=== PATIENT | male | born 1955 ===

== ENCOUNTER 2025-02-27 00:52 | Inpatient (IN) | payer MEDICARE ==
[~2025-02-27] VITALS: Ht 167.6 cm; Wt 67.3 kg
[2025-02-27] VITALS (49 sets, daily range): BP systolic 69–134; BP diastolic 35–108
[2025-02-27 01:06] LABS: Source, Urine Foley catheter
[2025-02-27 01:07] LABS: Base Excess Venous -6.4 mmol/L; Bicarbonate Venous 19.4 mmol/L (24.0-30.0)
[2025-02-27 01:09] LABS: Bilirubin, Urine Neg (Neg); Blood, Urine 5+ (Neg); Glucose Qualitative, Urine 1+ (Neg); Ketones, Urine 3+ (Neg); Leukocyte Esterase, Urine Neg (Neg); Nitrite, Urine Neg (Neg); Protein, Urine 3+ (Neg); Specific Gravity, Urine 1.025 (1.003-1.022); Urobilinogen, Urine NORM (Normal)
[2025-02-27 01:14] LABS: Hematocrit 39.4 % (37.0-53.0); Hemoglobin 13.9 g/dL (13.5-17.5); Mean Corpuscular HGB 34.1 pg (26.0-34.0); Mean Corpuscular HGB Conc 35.3 g/dL (31.5-36.5); Mean Corpuscular Volume 97 fL (80-100); Mean Platelet Volume 9.9 fL (9.1-12.4); NRBC ABSOLUTE 0.02 K/mm3 (0.00-0.02); NRBC Auto 0.1 /100 WBC (0.0-0.2); Platelet Count 258 K/mm3 (150-400); RDW Coefficient Variation 13.5 % (11.7-14.2); Red Blood Cell Count 4.08 M/mm3 (4.30-5.90); White Blood Cell Count 19.76 K/mm3 (4.00-11.30)
[2025-02-27 01:18] LABS: Appearance, Urine Hazy (Clear); Bacteria Rare /hpf; Color, Urine Yellow (P-Yellow); Red Blood Cells, Urine 25-50 /hpf (0-2); Squamous Epithelial Cells Rare /hpf (Few); White Blood Cells, Urine Not Seen /hpf (0-5)
[2025-02-27 01:19] LABS: Amorphous Mod (0-Heavy); Mucus Light (0-Heavy)
[2025-02-27 01:24] LABS: U Amphetamine Screen Not Detected; U Barbituate Screen Not Detected; U Benzodiazapine Screen Not Detected; U Buprenorphine Screen Not Detected; U Cannabinoids Screen DETECTED; U Cocaine Screen Not Detected; U Methadone Screen Not Detected; U Methamphetamine Screen Not Detected; U Opiates Screen Not Detected; U Oxycodone Screen Not Detected; U Phencyclidine Screen Not Detected
[2025-02-27] MEDS ORDERED: Acetaminophen 650 MG Supp PR ONE (01:25)
[2025-02-27] MEDS ORDERED: propofoL 100 ML IV SCH (01:25)
[2025-02-27 01:31] LABS: Ethanol (Alcohol), Blood, Med <3 mg/dL; Salicylate 2.9 mg/dL (2.8-20.0)
[2025-02-27 01:35] LABS: Alanine Aminotransfer (ALT/SGP 16 U/L (12-78); Albumin, Blood 4.1 g/dL (3.4-5.0); Albumin/Globulin Ratio 1.1 (0.8-1.8); Alk Phos 70 U/L (50-136); Anion Gap 15 mmol/L (3-11); Aspartate Aminotrans (AST/SGOT 30 U/L (12-37); Bilirubin, Total 0.8 mg/dL (0.1-1.0); Blood Urea Nitrogen 22 mg/dL (8-24); Bun/Creatinine Ratio 15.8 (12.0-20.0); CO2, Blood 21 mmol/L (21-32); Calcium, Blood 9.2 mg/dL (8.5-10.1); Chloride, Blood 104 mmol/L (98-108); Creatinine, Blood 1.39 mg/dL (0.60-1.20); Globulin, Blood 3.6 g/dL (2.2-4.0); Glomerular Filtration Rate 54 (60-); Glucose, Blood 206 mg/dL (70-99); Potassium, Blood 3.3 mmol/L (3.5-5.5); Sodium, Blood 137 mmol/L (136-145); Total Protein, Blood 7.7 g/dL (6.4-8.2)
[2025-02-27] MEDS ORDERED: Piperacillin/Tazobactam Sod 4.5 GM in NS 100 ML IV ONE (01:35)
[2025-02-27 01:37] LABS: Acetaminophen, Random <2.0 ug/mL (10.0-30.0)
[2025-02-27 01:38] LABS: BAND PERCENT MAN 21 % (0-8); BASOPHILS PERCENT MAN 0 % (0-2); EOSINOPHILS PERCENT MAN 0 % (0-6); International Normalized Ratio 1.05; LYMPHOCYTES ABSOLUTE MAN 0.79 K/mm3 (0.84-5.20); LYMPHOCYTES PERCENT MAN 4 % (21-46); MONOCYTES ABSOLUTE MAN 1.77 K/mm3 (0.16-1.47); MONOCYTES PERCENT MAN 9 % (4-13); NEUTROPHILS ABSOLUTE MAN 17.19 K/mm3 (1.96-9.15); Prothrombin Time Results 11.2 Sec (9.7-11.5); SEG NEUTROPHILS PERCENT MAN 66 % (41-73); TOTAL CELLS COUNTED 100
[2025-02-27 01:47] LABS: Influenza A, PCR NEGATIVE (NEGATIVE); Influenza B, PCR NEGATIVE (NEGATIVE); Resp Syncytial Virus, PCR NEGATIVE (NEGATIVE); SARS-Cov-2 (COVID-19) PCR, MMC NEGATIVE (NEGATIVE)
[2025-02-27] MEDS ORDERED: Midazolam HCL 50 MG in NS 40 ML IV PRN (02:15)
[2025-02-27] MEDS ORDERED: NS 1,000 ML IV ONE (02:20)
[2025-02-27] MEDS ORDERED: Vancomycin HCL 1,500 MG in NS 250 ML IV ONE (02:25)
[2025-02-27] MEDS ORDERED: Midazolam HCL 1 MG/ML 5MLVIAL ONE (02:27)
[2025-02-27] MEDS ORDERED: NS 1,000 ML IV SCH (02:50)
[2025-02-27] MEDS ORDERED: Midazolam HCL 1 MG/ML 5MLVIAL IV ONE (02:50)
[2025-02-27] MEDS ORDERED: FentaNYL Citrate 50 MCG/ML 2 ML Injection ONE ×2 (04:49→16:35)
[2025-02-27] MEDS ORDERED: Ampicillin Sod 2,000 MG in NS 100 ML IV ONE (05:10)
[2025-02-27] MEDS ORDERED: Lactated Ringer's 1,000 ML IV ONE ×3 (05:15→14:50)
[2025-02-27] MEDS ORDERED: CefTRIAXone Sodium 2,000 MG in NS 100 ML IV SCH ×2 (06:36→07:01)
[2025-02-27] MEDS ORDERED: Ampicillin Sod 2,000 MG in NS 100 ML IV SCH (06:37)
[2025-02-27] MEDS ORDERED: Insulin Regular 100 UNIT/ML 10ML Vial SC SCH (06:39)
[2025-02-27] MEDS ORDERED: propofoL 100 ML IV PRN (06:40)
[2025-02-27] MEDS ORDERED: Lactated Ringer's 1,000 ML IV SCH (06:45)
[2025-02-27] MEDS ORDERED: FLU VACC TS2024-25(6MOS UP)/PF 45 MCG/0.5 ML SYRINGE IM ONE (06:45)
[2025-02-27] MEDS ORDERED: NS 1,000 ML BAG IR PRN (07:50)
[2025-02-27] MEDS ORDERED: Cetylpyridinium Chloride 1 EA MISC MT SCH (08:00)
[2025-02-27] MEDS ORDERED: NS 250 ML IV PRN (08:15)
[2025-02-27] MEDS ORDERED: Docusate Sodium 100 MG Cap PO SCH (09:00)
[2025-02-27] MEDS ORDERED: Lactobacil 2-S.Thermo-Bifido 1 1 Cap PO SCH (09:00)
--- NOTE | 2025-02-27 09:35 | NUR ---
AM UPDATE VERSED PAUSED FOR SEDATION VACATION. PT MOVES ALL EXTREMITIES BUT DOES NOT OPEN EYES OR FOLLOW COMMANDS. ETT INTACT AND SECURE. OGT CLAMP. MARTIN IN PLACE, DRAINING TEA COLORED URINE TO GRAVITY. IMAGING REVIEWED AND DISCUSSED WITH DR. ACUNA AT BEDSIDE. TROPONIN CRITICAL VALUE OF 1582 REPORTED AT BEDSIDE. SPOKE WITH PHARMACY, VANCOMYCIN STARTED IN ED AT 0233 BUT STOPPED AT SOME POINT. RESTARTED AT 0830 AND AMENDED EMAR TO REFLECT. BPS SOFT WITH MAP >65, NSR 60S-70S. PINPOINT PUPILS. PIV X2. LR INFUSING. AMPICILLIN, ROCEPHIN, VANC ADMINISTERED. AFEBRILE. PLAN FOR POSSIBLE LUMBAR PUNCTURE TODAY BY DR. ACUNA. NEURO AT [facility] HAS BEEN CONSULTED AND INVOLVED WITH DECISIONS IN CARE. SAFETY, COMFORT, HYGIENE ADDRESSED.
--- NOTE | 2025-02-27 09:41 | NUR ---
ASSUMPTION OF CARE THIS NURSE ASSSUMED CARE AT 0940 AND THIS RN AGREES WITH PREVIOUS NURSE ASSESSMENT.
[2025-02-27] MEDS ORDERED: LORazepam 2 MG/ML 1ML Injection IV PRN (10:40)
[2025-02-27] MEDS ORDERED: Hydrogen Peroxide 1.5 % Solution MT SCH (12:00)
[2025-02-27 13:57] LABS: Acinetobacter baumannii DNA Not Detected copy/mL (NOT DETECT); Enterobacter cloacae DNA Not Detected copy/mL (NOT DETECT); Escherichia coli DNA Not Detected copy/mL (NOT DETECT); Haemophilus influenzae DNA Not Detected copy/mL (NOT DETECT); Klebsiella aerogenes DNA Not Detected copy/mL (NOT DETECT); Klebsiella oxytoca DNA Not Detected copy/mL (NOT DETECT); Klebsiella pneumoniae DNA Not Detected copy/mL (NOT DETECT); Moraxella catarrhalis DNA Not Detected copy/mL (NOT DETECT); Proteus sp DNA Not Detected copy/mL (NOT DETECT); Pseudomonas aeruginosa DNA Not Detected copy/mL (NOT DETECT); Serratia marcescens DNA Not Detected copy/mL (NOT DETECT); Staphylococcus aureus DNA Not Detected copy/mL (NOT DETECT); Streptococcus agalactiae DNA Not Detected copy/mL (NOT DETECT); Streptococcus pneumoniae DNA Not Detected copy/mL (NOT DETECT); Streptococcus pyogenes DNA Not Detected copy/mL (NOT DETECT)
[2025-02-27 13:58] LABS: Adenovirus DNA Not Detected (NOT DETECT); Chlamydia pneumonia Not Detected (NOT DETECT); Human Coronavirus RNA Not Detected (NOT DETECT); Human Metapneumovirus RNA Not Detected (NOT DETECT); Influenza virus A RNA Not Detected (NOT DETECT); Influenza virus B RNA Not Detected (NOT DETECT); Legionella pneumophila Not Detected (NOT DETECT); Mycoplasma pneumoniae Not Detected (NOT DETECT); Parainfluenza virus RNA Not Detected (NOT DETECT); Respiratory syncytial Vir RNA Not Detected (NOT DETECT); Rhinovirus+Enterovirus RNA Not Detected (NOT DETECT)
[2025-02-27 14:40] LABS: Glucose, CSF 91 mg/dL (40-70)
[2025-02-27 15:18] LABS: RBC Count, CSF 928 /mm3 (0-0); WBC Count, CSF 63 /mm3 (0-5)
[2025-02-27 15:19] LABS: Appearance, CSF Hazy (Clear)
[2025-02-27 15:25] LABS: Color, CSF Pink (No Color)
[2025-02-27 15:44] LABS: Appearance, CSF Hazy (Clear); Color, CSF Pink (No Color); Cryptococcus Neoformans/Gattii Not Detected (NOT DETECT); Enterovirus Not Detected (NOT DETECT); Escherichia Coli K1 Not Detected (NOT DETECT); Haemophilus Influenza Not Detected (NOT DETECT); Herpes Simplex Virus 1 Not Detected (NOT DETECT); Herpes Simplex Virus 2 Not Detected (NOT DETECT); Human Herpesvirus 6 Not Detected (NOT DETECT); Human Parechovirus Not Detected (NOT DETECT); Listeria Monocytogenes Not Detected (NOT DETECT); Neisseria Meningitidis Not Detected (NOT DETECT); RBC Count, CSF 940 /mm3 (0-0); Streptococcus Agalactiae Not Detected (NOT DETECT); Streptococcus Pneumoniae Not Detected (NOT DETECT); Varicella Zoster Virus Not Detected (NOT DETECT); WBC Count, CSF 78 /mm3 (0-5)
[2025-02-27 17:14] LABS: Lymphocytes, CSF 3 % (40-80); Monocytes, CSF 7 % (15-45); Neutrophils, CSF 90 % (0-6)
[2025-02-27 17:15] LABS: Lymphocytes, CSF 3 % (40-80); Monocytes, CSF 12 % (15-45); Neutrophils, CSF 85 % (0-6)
[2025-02-27 17:26] LABS: Base Excess Venous -4.1 mmol/L; Bicarbonate Venous 21.4 mmol/L (24.0-30.0); PCO2 Venous 34.7 mmHg (38-42); pH Blood Venous 7.39 (7.34-7.37)
[2025-02-27] MEDS ORDERED: FentaNYL Citrate 50 MCG/ML 2 ML Injection IV PRN (17:50)
[2025-02-27 17:54] LABS: BASOPHILS ABSOLUTE AUTO 0.06 K/mm3 (0.00-0.23); BASOPHILS PERCENT AUTO 1 % (0-2); EOSINOPHILS ABSOLUTE AUTO 0.03 K/mm3 (0.00-0.68); EOSINOPHILS PERCENT AUTO 0 % (0-6); Hematocrit 29.6 % (37.0-53.0); Hemoglobin 10.3 g/dL (13.5-17.5); IMMATURE GRAN ABSOLUTE AUTO 0.02 K/mm3 (0.00-0.10); IMMATURE GRAN PERCENT AUTO 0 % (0-1); LYMPHOCYTES ABSOLUTE AUTO 1.89 K/mm3 (0.84-5.20); LYMPHOCYTES PERCENT AUTO 18 % (21-46); MONOCYTES ABSOLUTE AUTO 0.62 K/mm3 (0.16-1.47); MONOCYTES PERCENT AUTO 6 % (4-13); Mean Corpuscular HGB 33.4 pg (26.0-34.0); Mean Corpuscular HGB Conc 34.8 g/dL (31.5-36.5); Mean Corpuscular Volume 96 fL (80-100); Mean Platelet Volume 9.9 fL (9.1-12.4); NEUTROPHILS ABSOLUTE AUTO 7.89 K/mm3 (1.96-9.15); NEUTROPHILS PERCENT AUTO 75 % (41-73); Platelet Count 145 K/mm3 (150-400); RDW Coefficient Variation 13.8 % (11.7-14.2); Red Blood Cell Count 3.08 M/mm3 (4.30-5.90); White Blood Cell Count 10.51 K/mm3 (4.00-11.30)
--- NOTE | 2025-02-27 18:09 | NUR ---
SHIFT SUMMARY PT REMAINS INTUBATED AND SEDATED. FAMILY HAS BEEN UPDATE PER PHONE. PT CONTINUES TO BE ABLE TO MOVE ALL EXTREMETIES BUT DOES NOT FOLLOW COMMANDS. PT HR HAS SLOWLY BEEN TRENDING DOWN FROM THE 70'S TO 50'S. 12 LEAD EKG OBTAINED, SEE CHART, MD AWARE. PT HAS A PICC IN THE LEFT ARM WITH CONSENT IN THE CHART D/T HYPOTENSION. BRONCHOSCOPY AT BEDSIDE PERFORMED TO FIND A TOOTH THAT THE STAFF HAD SUSPISION WAS IN THE MOUTH/THROAT, NO TOOTH WAS FOUND AND NONE SEEN ON IMAGING. PT SKIN TEAR ON LEFT HAND WAS PICTURED AND DOCUMENTED, SEE CHART. WOUNDS HAVE BEEN NOTIFIED TO DR ABDUL OF BOTH LEFT AND RIGHT HAND SKIN TEARS. WILL CONTINUE WITH THE PLAN OF CARE.
[2025-02-27 21:24] LABS: Magnesium, Blood 1.7 mg/dL (1.6-2.4)
[2025-02-27 21:27] LABS: Albumin, Blood 2.5 g/dL (3.4-5.0); Bilirubin, Total 0.7 mg/dL (0.1-1.0); Bun/Creatinine Ratio 18.3 (12.0-20.0); Calcium, Blood 7.3 mg/dL (8.5-10.1); Creatinine, Blood 0.76 mg/dL (0.60-1.20); Globulin, Blood 2.6 g/dL (2.2-4.0); Phosphorus, Blood 2.2 mg/dL (2.5-4.9); Potassium, Blood 3.1 mmol/L (3.5-5.5)
[2025-02-27 21:28] LABS: Total Protein, Blood 5.1 g/dL (6.4-8.2)
[2025-02-27] MEDS ORDERED: Potassium Chl 20MEQ/Water100ML 100 ML IV ONE (22:10)
[2025-02-27] MEDS ORDERED: Magnesium Sulf 2 GM/Water 50ML 50 ML IV ONE (22:15)
[2025-02-27] MEDS ORDERED: Potassium Phosphate Dibasic 30 MM in Dextrose 5% 500 ML IV ONE (22:45)
[2025-02-28] VITALS (73 sets, daily range): BP systolic 88–145; BP diastolic 49–126
[2025-02-28] MEDS ORDERED: Hydrogen Peroxide 1.5 % Solution MT SCH
[2025-02-28 04:21] LABS: BASOPHILS ABSOLUTE AUTO 0.06 K/mm3 (0.00-0.23); BASOPHILS PERCENT AUTO 1 % (0-2); EOSINOPHILS ABSOLUTE AUTO 0.05 K/mm3 (0.00-0.68); EOSINOPHILS PERCENT AUTO 1 % (0-6); Hematocrit 23.8 % (37.0-53.0); Hemoglobin 8.6 g/dL (13.5-17.5); IMMATURE GRAN ABSOLUTE AUTO 0.04 K/mm3 (0.00-0.10); IMMATURE GRAN PERCENT AUTO 1 % (0-1); LYMPHOCYTES ABSOLUTE AUTO 1.44 K/mm3 (0.84-5.20); LYMPHOCYTES PERCENT AUTO 19 % (21-46); MONOCYTES ABSOLUTE AUTO 0.42 K/mm3 (0.16-1.47); MONOCYTES PERCENT AUTO 6 % (4-13); Mean Corpuscular HGB 34.7 pg (26.0-34.0); Mean Corpuscular HGB Conc 36.1 g/dL (31.5-36.5); Mean Corpuscular Volume 96 fL (80-100); Mean Platelet Volume 9.7 fL (9.1-12.4); NEUTROPHILS ABSOLUTE AUTO 5.45 K/mm3 (1.96-9.15); NEUTROPHILS PERCENT AUTO 73 % (41-73); Platelet Count 109 K/mm3 (150-400); RDW Coefficient Variation 13.6 % (11.7-14.2); RDW Standard Deviation 48.1 fL (35.1-46.3); Red Blood Cell Count 2.48 M/mm3 (4.30-5.90); White Blood Cell Count 7.46 K/mm3 (4.00-11.30)
[2025-02-28 04:50] LABS: Magnesium, Blood 1.7 mg/dL (1.6-2.4)
[2025-02-28 05:23] LABS: Albumin, Blood 2.1 g/dL (3.4-5.0); Albumin/Globulin Ratio 0.8 (0.8-1.8); Bilirubin, Total 0.5 mg/dL (0.1-1.0); Bun/Creatinine Ratio 16.7 (12.0-20.0); Calcium, Blood 6.2 mg/dL (8.5-10.1); Creatinine, Blood 0.6 mg/dL (0.60-1.20); Globulin, Blood 2.8 g/dL (2.2-4.0); Potassium, Blood 2.9 mmol/L (3.5-5.5); Total Protein, Blood 4.9 g/dL (6.4-8.2)
[2025-02-28] MEDS ORDERED: D5W-1/2NS 1,000 ML IV SCH (05:40)
[2025-02-28 05:44] LABS: PCO2 Arterial 26.9 mmHg (35-45); PO2 Arterial 137 mmHg (80-100); pH Blood Arterial 7.46 (7.35-7.45)
--- NOTE | 2025-02-28 06:25 | NUR ---
SHIFT SUMMARY: THIS PT STILL REMAINS INTUBATED AND SEDATED. DAUGHTER AND CALLED THIS AM AND WERE UPDATED. PT IS AGITATED WHEN AWAKE AND NOT FOLLOWING MY COMMANDS. BED BATH GIVEN OVERNIGHT WITH COMPLETE LINEN CHANGE. HEART RATE CONTINUES TO BE BRADYCARDIC IN THE 50s-60s. MAP HAS BEEN GREATER THAN 65. HE ALSO REMAINS AFEBRILE. CURRENTLY ON PROPOFOL GTT AND MAINTENANCE FLUID. ELECTROLYTE IMBALANCE TALKED ABOUT WITH PHYSICIAN THIS AM. PLAN IS TO OBTAIN RENAL FUNCTION LAB TEST BEFORE REPLACING.
[2025-02-28] MEDS ORDERED: Pantoprazole Sodium 40 MG Injection IV SCH (06:38)
[2025-02-28] MEDS ORDERED: Cetylpyridinium Chloride 1 EA MISC MT SCH (08:00)
[2025-02-28] MEDS ORDERED: Vancomycin HCL 1,500 MG in NS 250 ML IV SCH ×2 (08:00→20:00)
[2025-02-28 08:56] LABS: Bun/Creatinine Ratio 14.3 (12.0-20.0); Calcium, Blood 7.3 mg/dL (8.5-10.1); Creatinine, Blood 0.7 mg/dL (0.60-1.20); Magnesium, Blood 1.9 mg/dL (1.6-2.4); Phosphorus, Blood 3.2 mg/dL (2.5-4.9); Potassium, Blood 3.5 mmol/L (3.5-5.5)
[2025-02-28] MEDS ORDERED: Docusate Sodium Liquid 100 MG UDC PO SCH (09:00)
[2025-02-28] MEDS ORDERED: Bisacodyl 10 MG Supp PR PRN (12:15)
[2025-02-28] MEDS ORDERED: Magnesium Hydroxide Conc 10 ML UDC PT PRN (12:15)
--- NOTE | 2025-02-28 13:11 | NUR ---
MID SHIFT SUMMARY PT AGITATED +4 TO -4 RASS. OPENS EYES AND COMBATIVE TO STIMULATION BUT DOES NOT FOLLOW COMMANDS. MOVES ALL EXTREMITIES. UNABLE TO TOLERATE SAT. NO SBT PERFORMED D/T SAFETY. ELECTROLYTES REPLACED PM. REPEAT LABS THIS MORNING AND THIS AFTERNOON. BEDSIDE ECHO COMPLETED. NUTRITION CONSULT PLACED. TF VHP INITIATED. DR. ACUNA SPOKE WITH PT'S DAUGHTER VIA TELEPHONE CALL. PICC, PIVX1, SCDS, MARTIN TO GRAVITY. AFEBRILE. SPOKE WITH AMRIK IN LAB TO CLARIFY RECEIPT OF PENDING SPUTUM CULTURE. PER LAB, SPECIMEN WAS USED FOR SOME LAB RESULTS BUT THE CULTURE WAS NOT RAN. LAB TO COMPLETE WORKUP USING SPECIMEN ALREADY IN LAB.
[2025-02-28] MEDS ORDERED: Potassium Chloride 40 MEQ in NS 250 ML IV ONE (18:00)
--- NOTE | 2025-02-28 18:20 | NUR ---
END OF SHIFT SUMMARY NO ACUTE CHANGES. FAMILY UPDATED. VHP TF INITIATED VIA OGT - 25ML/HR FWF 30ML Q4H - GOAL TF RATE OF 50 ML/HR. PT REMAINS ENCEPHALOPATHIC, DOES NOT FOLLOW COMMANDS BUT MOVES ALL EXTREMITIES. COMBATIVE WITH PT CARE. BUE RESTRAINTS APPLIED APPROPRIATELY AND SAFETY MEASURES FOLLOWED. 40 MEQ POTASSIUM CHLORIDE REPLACED AT 1800. REPEATING IONIZED CALCIUM.
[2025-03-01] VITALS (56 sets, daily range): BP systolic 83–152; BP diastolic 43–130
[2025-03-01 05:31] LABS: BASOPHILS ABSOLUTE AUTO 0.05 K/mm3 (0.00-0.23); BASOPHILS PERCENT AUTO 1 % (0-2); EOSINOPHILS ABSOLUTE AUTO 0.11 K/mm3 (0.00-0.68); EOSINOPHILS PERCENT AUTO 2 % (0-6); Hematocrit 27.8 % (37.0-53.0); Hemoglobin 9.8 g/dL (13.5-17.5); IMMATURE GRAN ABSOLUTE AUTO 0.03 K/mm3 (0.00-0.10); IMMATURE GRAN PERCENT AUTO 0 % (0-1); LYMPHOCYTES ABSOLUTE AUTO 1.32 K/mm3 (0.84-5.20); LYMPHOCYTES PERCENT AUTO 19 % (21-46); MONOCYTES ABSOLUTE AUTO 0.39 K/mm3 (0.16-1.47); MONOCYTES PERCENT AUTO 6 % (4-13); Mean Corpuscular HGB 33.8 pg (26.0-34.0); Mean Corpuscular HGB Conc 35.3 g/dL (31.5-36.5); Mean Corpuscular Volume 96 fL (80-100); Mean Platelet Volume 9.7 fL (9.1-12.4); NEUTROPHILS ABSOLUTE AUTO 5.16 K/mm3 (1.96-9.15); NEUTROPHILS PERCENT AUTO 73 % (41-73); Platelet Count 123 K/mm3 (150-400); RDW Coefficient Variation 13.5 % (11.7-14.2); RDW Standard Deviation 47.8 fL (35.1-46.3); White Blood Cell Count 7.06 K/mm3 (4.00-11.30)
[2025-03-01 06:27] LABS: Magnesium, Blood 1.7 mg/dL (1.6-2.4)
--- NOTE | 2025-03-01 06:41 | NUR ---
SHIFT SUMMARY: PT REMAINS INTUBATED/SEDATED. THIS SHIFT PT DID FOLLOW COMMANDS BRIEFLY, ABLE TO SQUEEZE THIS RNS HAND, NOD, AND WIGGLE TOES. PT VENT SETTINGS REMAIN AC/VC 15/450/5/30%. SATS 100%. HR REMAINS 50-70S W/INTERMITTENT SPIKES INTO THE 90S WITH CARE. SBP 90S-130S. PT GIVEN MULTIPLE DOSES OF ATIVAN AND FENTANYL PRIOR TO CARE DUE TO PT NOT TOLERATING MUCH MOVEMENT WITHOUT FIGHTING VENT. SEE EMAR. PT HAS OG TUBE IN PLACE, INFUSING VITAL HP AT 45ML/HR. GOAL 50ML/HR. TEMP MARTIN REMAINS IN PLACE, PATENT, DRAINING CLEAR/YELLOW URINE. PICC LINE REMAINS IN KAY. PERIPHERAL 20G IN RAC. PROPOFOL INFUSING AT 20MCG/KG/MIN, NS INFUSING AT 10ML/HR.
[2025-03-01 06:55] LABS: Bun/Creatinine Ratio 9.9 (12.0-20.0); Calcium, Blood 7.6 mg/dL (8.5-10.1); Creatinine, Blood 0.61 mg/dL (0.60-1.20); Phosphorus, Blood 2.1 mg/dL (2.5-4.9); Potassium, Blood 3.1 mmol/L (3.5-5.5)
[2025-03-01 08:25] LABS: Vancomycin, Trough 21.1 ug/mL (5.0-10.0)
--- NOTE | 2025-03-01 09:29 | NUR ---
AM NOTE... ASSUMED CARE OF PATIENT AT 0700. PATIENT VENTILATED AND SEDATED WITH VENT SETTINGS AC/VC+ 16/450/5 30%. PROPOFOL RUNNING AT 25 MCG/KG/MIN AND INCREASED TO 30 MCG/KG/MIN D/T PATIENT FIGHTING THE VENT. ET TUBE 26 AT THE TOP TEETH. OG TUBE AT 45 RUNNING VITAL HIGH PROTEIN AT 45ML/HR. GOAL 50ML/HR. L/S CLEAR WITH SATS >98%. TEMP MARTIN PATIENT AND DRAINING YELLOW URINE TO GRAVITY.
[2025-03-01] MEDS ORDERED: Vancomycin HCL 1,250 MG in NS 250 ML IV SCH (10:00)
[2025-03-01] MEDS ORDERED: Potassium Phosphate Dibasic 30 MM in Dextrose 5% 500 ML IV ONE (10:20)
[2025-03-01] MEDS ORDERED: dexmedeTOMIDine 100 ML IV SCH (10:25)
[2025-03-01] MEDS ORDERED: Calcium Gluconate 10% 2,000 MG in NS 50 ML IV ONE (11:10)
[2025-03-01] MEDS ORDERED: CALCIUM GLUC IN NACL, ISO-OSM 100 ML IV ONE (11:15)
[2025-03-01] MEDS ORDERED: NS 1,000 ML IV SCH (13:40)
--- NOTE | 2025-03-01 13:41 | NUR ---
LIBERATION NOTE... PATIENT WAS LIBERATED FROM THE VENTILATOR AT 1300 TO 4L NC WITH O2 SATS >95%. OTHER VS STABLE. PATIENT A&OX4. FAMILY UPDATED. AT 1340 NC WAS TITRATED DOWN TO 2L WITH O2 SATS >95%.
[2025-03-01] MEDS ORDERED: Insulin Regular 100 UNIT/ML 10ML Vial SC SCH (16:30)
[2025-03-01] MEDS ORDERED: Ondansetron HCl 2 MG / ML 2ML Vial ONE (16:42)
[2025-03-01] MEDS ORDERED: Ondansetron HCl 2 MG / ML 2ML Vial IV PRN (16:45)
--- NOTE | 2025-03-01 17:58 | NUR ---
SHIFT SUMMARY... PATIENT LIBERATED THIS SHIFT AT 1300 AND IS NOW ON ROOM AIR WITH SATS >95%. PATIENT UP TO CHAIR WITH MINIMAL ASSISTANCE. PATIENT ABLE TO SWALLOW THIN LIQUIDS AND SOFT FOODS. TEMP MARTIN PATENT AND DRAINING YELLOW URINE TO GRAVITY. PATIENT HAD SMALL BOUT OF N/V AND WAS MEDICATED PER EMAR. PICC LINE PULLED OUT TO 3CM D/T PLACEMENT. PATIENT DID NOT HAVE BM THIS SHIFT. AT BEDSIDE HAS BEEN UPDATED. PATIENT IS NOW PCU STATUS.
--- NOTE | 2025-03-01 18:08 | NUR ---
STUDENT GRAPHIC ARTS INSTRUCTOR.... THIS RN HAS WITNESSED AND AGREES WITH ALL OF STUDENT RN JT'S CHARTING AND DOCUMENTATION.
[2025-03-02] VITALS (24 sets, daily range): BP systolic 112–176; BP diastolic 63–95
[2025-03-02 04:02] LABS: BASOPHILS ABSOLUTE AUTO 0.04 K/mm3 (0.00-0.23); BASOPHILS PERCENT AUTO 1 % (0-2); EOSINOPHILS ABSOLUTE AUTO 0.03 K/mm3 (0.00-0.68); EOSINOPHILS PERCENT AUTO 0 % (0-6); Hematocrit 32.6 % (37.0-53.0); Hemoglobin 11.8 g/dL (13.5-17.5); IMMATURE GRAN ABSOLUTE AUTO 0.03 K/mm3 (0.00-0.10); IMMATURE GRAN PERCENT AUTO 0 % (0-1); LYMPHOCYTES ABSOLUTE AUTO 1.02 K/mm3 (0.84-5.20); LYMPHOCYTES PERCENT AUTO 15 % (21-46); MONOCYTES ABSOLUTE AUTO 0.47 K/mm3 (0.16-1.47); MONOCYTES PERCENT AUTO 7 % (4-13); Mean Corpuscular HGB 34.5 pg (26.0-34.0); Mean Corpuscular HGB Conc 36.2 g/dL (31.5-36.5); Mean Corpuscular Volume 95 fL (80-100); Mean Platelet Volume 9.8 fL (9.1-12.4); NEUTROPHILS ABSOLUTE AUTO 5.43 K/mm3 (1.96-9.15); NEUTROPHILS PERCENT AUTO 77 % (41-73); Platelet Count 142 K/mm3 (150-400); RDW Coefficient Variation 13.2 % (11.7-14.2); Red Blood Cell Count 3.42 M/mm3 (4.30-5.90); White Blood Cell Count 7.02 K/mm3 (4.00-11.30)
[2025-03-02 04:49] LABS: Ferritin, Serum 248 ng/mL (26-388); Iron Serum 54 ug/dL (65-175); Magnesium, Blood 1.6 mg/dL (1.6-2.4); Percent Saturation 43.5 % (20.0-50.0); Total Iron Binding Capacity 124 ug/dL (250-450)
--- NOTE | 2025-03-02 04:55 | NUR ---
SHIFT SUMMARY PT HAD UNEVENTFUL NIGHT. PT RESPONDS TO VERBAL STIMULI. FOLLOWS COMMANDS, HOLLERS OUT FOR HELP, DOES NOT USE CALL LIGHT. ON ROOM AIR ALL SHIFT, SATS > 94%. ON EQUIPMENT STERILIZER, HR 70-80'S, BP STABLE, MAPS > 65. PT HAD TWO INCONTINENT LOOSE BM THIS SHIFT. MARTIN DRAINING LOTS OF CLEAR YELLOW URINE TO GRAVITY. PT TOLERATING SMALL PORTIONS OF PO INTAKE, PILLS IN APPLESAUCE. NO N/V THIS SHIFT. PT SLEPT IN CHAIR T/O NIGHT PER HIS REQUEST. REFUSED TO BE TURNED. CALL LIGHT IN REACH.
[2025-03-02 05:49] LABS: Albumin, Blood 2.7 g/dL (3.4-5.0); Anion Gap 8 mmol/L (3-11); Blood Urea Nitrogen 3 mg/dL (8-24); CO2, Blood 28 mmol/L (21-32); Calcium, Blood 7.9 mg/dL (8.5-10.1); Chloride, Blood 107 mmol/L (98-108); Glomerular Filtration Rate 103 (60-); Glucose, Blood 161 mg/dL (70-99); Phosphorus, Blood 3.2 mg/dL (2.5-4.9); Potassium, Blood 3.2 mmol/L (3.5-5.5); Sodium, Blood 140 mmol/L (136-145)
[2025-03-02] MEDS ORDERED: CALCIUM GLUC IN NACL, ISO-OSM 100 ML IV ONE (11:15)
[2025-03-02] MEDS ORDERED: Potassium Chloride 40 MEQ in NS 250 ML IV ONE (11:15)
[2025-03-02] MEDS ORDERED: Enoxaparin 40 MG/0.4 ML SYR SC SCH (12:00)
--- NOTE | 2025-03-02 17:52 | NUR ---
SHIFT SUMMARY PATIENT ALERT AND ORIENTED TO PERSON, PLACE, SITUATION BUT NOT TIME. HE KNOWS HE IS AT THE HOSPITAL BUT CANNOT RECALL THE TOWN. HE CALLS OUT VERBALLY FOR HELP BUT DOES NOT ATTEMPT TO GET UP ON HIS OWN. HE IS ABLE TO MAKE HIS NEEDS KNOWN. LUNGS ARE CLEAR TO AUSCULTATION. VSS SBP 110-150S. HR 90-110S. ABDOMEN IS SOFT/NON TENDER, HYPERACTIVE BOWEL TONES. HAD BM X3 TODAY, DIARRHEA BUT THEN RESOLVED (RECEIEVED DOCUSATE YESTERDAY, HELD TODAY). MARTIN IN PLACE, UOP IS IMPRESSIVE. PO INTAKE IMPROVED FOOD AND FLUIDS. SKIPPED LUNCH BUT ATE FULL BREAKFAST AND DINNER. INTO VISIT UPDATES AND EDUCATION PROVIDED, EST 25MIN EDUCATION/ REVIEWING HOSPIATL COARSE. SKIN: ECCYMOSIS AND SKIN TEARS BUE. OTHERWISE SKIN LOOKS GOOD INTACT WITH MINIMAL BRUISING.
[2025-03-03] VITALS: BP 116/57
--- NOTE | 2025-03-03 01:20 | NUR ---
NURSING NOTE: THIS RN TOOK PT UP TO MEDICAL FLOOR FROM ICU AT AROUND 0100. THIS RN ATTEMPTED TO CALL FOR NOTIFICATION BUT WAS UNSUCCESSFUL. UNABLE TO LEAVE MESSAGE WELL.
--- NOTE | 2025-03-03 01:32 | NUR ---
ICU ROOM 12 TRANSFER. REPORT TAKEN FROM CARIDAD HANSON. PATIENT ALERT ORIENTED AND ONE ASSIST FROM [place] TO BED. ON ROOM AIR. DENIES CHEST PAIN, SOB, AND N/V. PICC DENIA ARM INTACT. NS INFUSING @ 75 mL/HR. PERSONAL BELONGINGS WITH PATIENT. FRANKI.
--- NOTE | 2025-03-03 04:06 | NUR ---
SHIFT SUMMARY PATIENT HAD NO ACUTE CHANGES. SLEPT AFTER ICU TRANSFER. DENIES CHEST PAIN, SOB, AND N/V. VSS/AFEBRILE. TELE MONITOR NSR 96. PULLED PIV. PICC DENIA ARM INTACT. COOPERATIVE WITH CARE. CALL LIGHT IN REACH. BED IN LOWEST POSITION AND ALARM ACTIVATED. WILL CONTINUE TO MONITOR UNTIL DAY SHIFT NURSE ASSUMES CARE.
[2025-03-03 04:35] VITALS: BP 141/72
[2025-03-03 05:59] LABS: BASOPHILS ABSOLUTE AUTO 0.06 K/mm3 (0.00-0.23); BASOPHILS PERCENT AUTO 1 % (0-2); EOSINOPHILS ABSOLUTE AUTO 0.07 K/mm3 (0.00-0.68); EOSINOPHILS PERCENT AUTO 1 % (0-6); Hematocrit 32.5 % (37.0-53.0); Hemoglobin 11.4 g/dL (13.5-17.5); IMMATURE GRAN ABSOLUTE AUTO 0.03 K/mm3 (0.00-0.10); IMMATURE GRAN PERCENT AUTO 0 % (0-1); LYMPHOCYTES ABSOLUTE AUTO 1.26 K/mm3 (0.84-5.20); LYMPHOCYTES PERCENT AUTO 16 % (21-46); MONOCYTES ABSOLUTE AUTO 0.58 K/mm3 (0.16-1.47); MONOCYTES PERCENT AUTO 7 % (4-13); Mean Corpuscular HGB 33.4 pg (26.0-34.0); Mean Corpuscular HGB Conc 35.1 g/dL (31.5-36.5); Mean Corpuscular Volume 95 fL (80-100); Mean Platelet Volume 9.4 fL (9.1-12.4); NEUTROPHILS ABSOLUTE AUTO 6.09 K/mm3 (1.96-9.15); NEUTROPHILS PERCENT AUTO 75 % (41-73); Platelet Count 162 K/mm3 (150-400); RDW Coefficient Variation 13.1 % (11.7-14.2); RDW Standard Deviation 45.6 fL (35.1-46.3); Red Blood Cell Count 3.41 M/mm3 (4.30-5.90); White Blood Cell Count 8.09 K/mm3 (4.00-11.30)
[2025-03-03 06:21] LABS: Albumin, Blood 2.7 g/dL (3.4-5.0); Albumin/Globulin Ratio 0.8 (0.8-1.8); Bilirubin, Total 0.7 mg/dL (0.1-1.0); Bun/Creatinine Ratio 7.8 (12.0-20.0); Calcium, Blood 8.5 mg/dL (8.5-10.1); Creatinine, Blood 0.64 mg/dL (0.60-1.20); Globulin, Blood 3.5 g/dL (2.2-4.0); Potassium, Blood 3.2 mmol/L (3.5-5.5); Total Protein, Blood 6.2 g/dL (6.4-8.2)
[2025-03-03 07:43] VITALS: BP 169/84
[2025-03-03] MEDS ORDERED: Potassium Chloride 20 MEQ/15 ML UDC PO ONE (09:05)
[2025-03-03 11:42] VITALS: BP 170/88
[2025-03-03] MEDS ORDERED: Magnesium Sulf 2 GM/Water 50ML 50 ML IV STA (12:12)
--- NOTE | 2025-03-03 12:16 | NUR ---
RN NOTIFIED PROVIDER TLAANG DURING ROUNDS REGARDING PT ELEVATED BP AND HR - NO NEW ORDERS GIVEN AT THIS TIME.
[2025-03-03] MEDS ORDERED: Amoxicillin/Clavulanate K 875 MG Tab PO SCH (13:00)
[2025-03-03] MEDS ORDERED: AMLO5 PO (14:01)
[2025-03-03] MEDS ORDERED: VISBIOME 112.51 EACH PO (14:01)
[2025-03-03] MEDS ORDERED: AMOCLA875 PO (14:01)
[2025-03-03] MEDS ORDERED: MIRALAX17 GM PO (14:02)
[2025-03-03 15:10] VITALS: BP 163/85
--- NOTE | 2025-03-03 15:45 | NUR ---
DISCHARGE SUMMARY PT DC'D AT APPROX 1530 ON 03/03/25 TO HIS HOME. PT SPOUSE PRESENT AT DISCHARGE, DISCHARGE PACKET REVIEWED WITH PT AND HIS SPOUSE. RX FAXED TO [facility] AND REVIEWED WITH PT AND SPOUSE. PICC REMOVED BY JAQUELINE DE LEON RN - SITE APPEARS WNL. PT WHEELED DOWN TO PRIVATE VEHICLE, ABLE TO STAND AND AMBULATE INDEPENDENTLY TO CAR.
== END 2025-03-03 15:32 | disposition home or self-care (01) | DRG 871 ==
LOC: ER 00:52 → ICUE 05:58 → MEDS 03-03 01:05
PROVIDERS: Internal Medicine; Internal Medicine Critical Care Medicine; Student in an Organized Health Care Education/Training Program; ADMIT Student in an Organized Health Care Education/Training Program
PROC: 0BH17EZ Insertion of Endotracheal Airway into Trachea, Via Natural or Artificial Opening (ICD-10-PCS; principal; 2025-02-27)
PROC: 5A1945Z Respiratory Ventilation, 24-96 Consecutive Hours (ICD-10-PCS; 2025-02-27)
PROC: 3E03329 Introduction of Other Anti-infective into Peripheral Vein, Percutaneous Approach (ICD-10-PCS; 2025-02-27)
PROC: 0DH67UZ Insertion of Feeding Device into Stomach, Via Natural or Artificial Opening (ICD-10-PCS; 2025-02-27)
PROC: 3E0G76Z Introduction of Nutritional Substance into Upper GI, Via Natural or Artificial Opening (ICD-10-PCS; 2025-02-27)
PROC: 009U3ZX Drainage of Spinal Canal, Percutaneous Approach, Diagnostic (ICD-10-PCS; 2025-02-27)
PROC: 4A033R1 Measurement of Arterial Saturation, Peripheral, Percutaneous Approach (ICD-10-PCS; 2025-03-01)
DX: A41.9 Sepsis, unspecified organism (principal); G92.8 Other toxic encephalopathy; I21.A1 Myocardial infarction type 2; J96.01 Acute respiratory failure with hypoxia; E87.20 Acidosis, unspecified; G96.00 Cerebrospinal fluid leak, unspecified; N17.9 Acute kidney failure, unspecified; M62.82 Rhabdomyolysis; E78.00 Pure hypercholesterolemia, unspecified; R45.6 Violent behavior; F12.90 Cannabis use, unspecified, uncomplicated; E87.6 Hypokalemia; E11.22 Type 2 diabetes mellitus with diabetic chronic kidney disease; I12.9 Hypertensive chronic kidney disease with stage 1 through stage 4 chronic kidney disease, or unspecified chronic kidney disease; N18.9 Chronic kidney disease, unspecified; K20.90 Esophagitis, unspecified without bleeding; E83.51 Hypocalcemia; E83.39 Other disorders of phosphorus metabolism; D69.6 Thrombocytopenia, unspecified; D63.1 Anemia in chronic kidney disease; K04.7 Periapical abscess without sinus; W18.39XA Other fall on same level, initial encounter; Y92.009 Unspecified place in unspecified non-institutional (private) residence as the place of occurrence of the external cause
CPT/HCPCS: 0241U; 0528U; 31500; 36415; 36569; 36600; 62270; 70450; 70490; 71045; 72125; 74177; 80048; 80053; 80069; 80202; 80320; 81001; 82330; 82550; 82728; 82803; 82945; 82947; 83540; 83550; 83605; 83690; 83735; 84100; 84132; 84157; 84484; 85025; 85610; 85730; 87040; 87070; 87205; 87483; 89051; 93005; 93010; 93306; 94002; 94003; 94762; 96374-59; 97116; 97162; 97165; 97530; 97535; 99285-25; A9270; C1751; G0480; J0290; J0612; J0696; J1650; J1815; J2060; J2250; J2405; J2470; J2543; J2704; J3010; J3370; J3475; J3480; J7030; J7042; J7050; J7060; J7120; Q9967

== ENCOUNTER 2025-10-23 15:18 | Inpatient (IN) | payer MEDICARE ==
[2025-10-23] VITALS (11 sets, daily range): BP systolic 77–174; BP diastolic 55–134
[~2025-10-23] VITALS: Ht 170.2 cm; Wt 67.0 kg
[~2025-10-23 15:18] MED LIST: AMLO5 PO; AMOCLA875 PO; Etomidate 2MG / ML 10ML Vial IV ONE; MIRALAX17 GM PO; Rocuronium Bromide 10 MG/ML 5ML Injection IV ONE; VISBIOME 112.51 EACH PO
[2025-10-23] MEDS ORDERED: Midazolam HCL 1 MG/ML 5MLVIAL ONE (15:24)
[2025-10-23 15:35] LABS: Source, Urine Foley catheter
[2025-10-23] MEDS ORDERED: CefTRIAXone Sodium 2,000 MG in NS 100 ML IV ONE (15:35)
[2025-10-23 15:50] LABS: Bilirubin, Urine Neg (Neg); Glucose Qualitative, Urine 4+ (Neg); Ketones, Urine 2+ (Neg); Leukocyte Esterase, Urine Neg (Neg); Protein, Urine 2+ (Neg); Specific Gravity, Urine 1.025 (1.003-1.022); Urobilinogen, Urine NORM (Normal)
[2025-10-23 15:55] LABS: Color, Urine Pale Yellow (P-Yellow)
[2025-10-23 15:56] LABS: White Blood Cells, Urine 0-2 /hpf (0-5)
[2025-10-23 16:01] LABS: CORONAVIRUS COVID-19 AG Negative (NEGATIVE)
[2025-10-23 16:01] LABS: U Amphetamine Screen Not Detected; U Barbiturate Screen Not Detected; U Benzodiazapine Screen Not Detected; U Buprenorphine Screen Not Detected; U Cannabinoids Screen DETECTED; U Cocaine Screen Not Detected; U Methadone Screen Not Detected; U Methamphetamine Screen Not Detected; U Opiates Screen Not Detected; U Oxycodone Screen Not Detected; U Phencyclidine Screen Not Detected
[2025-10-23 16:06] LABS: pH Blood Venous 7.31 (7.34-7.37)
[2025-10-23 16:13] LABS: BASOPHILS ABSOLUTE AUTO 0.12 K/mm3 (0.00-0.23); BASOPHILS PERCENT AUTO 1 % (0-2); EOSINOPHILS ABSOLUTE AUTO 0.01 K/mm3 (0.00-0.68); EOSINOPHILS PERCENT AUTO 0 % (0-6); Hematocrit 41.5 % (37.0-53.0); Hemoglobin 14.4 g/dL (13.5-17.5); IMMATURE GRAN ABSOLUTE AUTO 0.25 K/mm3 (0.00-0.10); IMMATURE GRAN PERCENT AUTO 1 % (0-1); LYMPHOCYTES ABSOLUTE AUTO 0.84 K/mm3 (0.84-5.20); LYMPHOCYTES PERCENT AUTO 4 % (21-46); MONOCYTES ABSOLUTE AUTO 1.13 K/mm3 (0.16-1.47); MONOCYTES PERCENT AUTO 6 % (4-13); Mean Corpuscular HGB Conc 34.7 g/dL (31.5-36.5); Mean Corpuscular Volume 95 fL (80-100); NEUTROPHILS ABSOLUTE AUTO 17.40 K/mm3 (1.96-9.15); NEUTROPHILS PERCENT AUTO 88 % (41-73); NRBC ABSOLUTE 0.00 K/mm3 (0.00-0.02); NRBC Auto 0.0 /100 WBC (0.0-0.2); Platelet Count 275 K/mm3 (150-400); RDW Coefficient Variation 14.4 % (11.7-14.2); RDW Standard Deviation 51.1 fL (35.1-46.3)
[2025-10-23 16:20] LABS: Prothrombin Time Results 11.3 Sec (9.7-11.5)
[2025-10-23 16:58] LABS: Magnesium, Blood 2.1 mg/dL (1.6-2.4); Thyroid Stimulating Hormone 1.660 uIU/mL (0.360-4.800)
[2025-10-23 16:59] LABS: Alanine Aminotransfer (ALT/SGP 10 U/L (12-78); Albumin, Blood 3.2 g/dL (3.4-5.0); Albumin/Globulin Ratio 1.0 (0.8-1.8); Anion Gap 19 mmol/L (3-11); Aspartate Aminotrans (AST/SGOT 10 U/L (12-37); Bilirubin, Direct <0.1 mg/dL (0.0-0.3); Bilirubin, Indirect Unable to Calculate mg/dL (0.1-0.7); Bilirubin, Total 0.4 mg/dL (0.1-1.0); Blood Urea Nitrogen 19 mg/dL (8-24); CO2, Blood 17 mmol/L (21-32); Calcium, Blood 8.5 mg/dL (8.5-10.1); Chloride, Blood 104 mmol/L (98-108); Creatinine, Blood 1.19 mg/dL (0.60-1.20); Globulin, Blood 3.3 g/dL (2.2-4.0); Glucose, Blood 343 mg/dL (70-99); Phosphorus, Blood 1.6 mg/dL (2.5-4.9); Potassium, Blood 3.8 mmol/L (3.5-5.5); Sodium, Blood 136 mmol/L (136-145); Total Protein, Blood 6.5 g/dL (6.4-8.2)
[2025-10-23] MEDS ORDERED: Diltiazem HCl 5 MG / ML 5ML Vial IV ONE (17:55)
[2025-10-23] MEDS ORDERED: FLU VACC TS2025(65UP)/MF59C/PF 45 MCG/0.5 ML SYRINGE IM SCH (18:05)
[2025-10-23] MEDS ORDERED: Ondansetron HCl 2 MG / ML 2ML Vial IV PRN (18:05)
[2025-10-23] MEDS ORDERED: Vancomycin (Pharmacy Consult) IV SCH (18:15)
[2025-10-23] MEDS ORDERED: NS 1,000 ML IV SCH (18:20)
[2025-10-23] MEDS ORDERED: Labetalol HCL 5 MG/ML 4ML Injection (Single Dose) IV PRN (18:20)
[2025-10-23] MEDS ORDERED: Ampicillin Sod 2,000 MG in NS 100 ML IV ONE (18:35)
[2025-10-23 18:49] LABS: RBC Count, CSF 3820 /mm3 (0-0); WBC Count, CSF 3 /mm3 (0-5)
[2025-10-23] MEDS ORDERED: Potassium Phosphate Dibasic 20 MM in NS 500 ML IV SCH (19:00)
[2025-10-23] MEDS ORDERED: Metoprolol Tartrate 1 MG/ML 5 ML VIAL IV ONE (19:00)
[2025-10-23] MEDS ORDERED: Ketorolac Tromethamine 15mg Vial IV ONE (19:00)
[2025-10-23 19:06] LABS: RBC Count, CSF 31 /mm3 (0-0); WBC Count, CSF 2 /mm3 (0-5)
[2025-10-23 19:15] LABS: pH Blood Venous 7.34 (7.34-7.37)
[2025-10-23] MEDS ORDERED: LORazepam 2 MG/ML 1ML Injection IV PRN (19:35)
[2025-10-23] MEDS ORDERED: FentaNYL Citrate 50 MCG/ML 2 ML Injection IV PRN (19:40)
[2025-10-23] MEDS ORDERED: Cetylpyridinium Chloride 1 EA MISC MT SCH (20:00)
[2025-10-23] MEDS ORDERED: Lactobacil 2-S.Thermo-Bifido 1 1 Cap PT SCH (21:00)
[2025-10-23 21:30] LABS: Haemophilus Influenza Not Detected (NOT DETECT)
--- NOTE | 2025-10-23 22:20 | NUR ---
ASSUMPTION OF CARE PT ARRIVED TO UNIT APPROX 1914. PT IS INTUBATED AND SEDATED WITH PROPOFOL AT 40 MCG, RASS +2. VENT SETTINGS A/C VC 16/450/5.0/30% FI02. SEDATION ADJUSTED AND FENTANYL ADJUNCT GIVEN AFTER ARRIVAL -SEE [facility]. PT CURRENTLY INTUBATED WITH SAME VENT SETTINGS, PROPOFOL AT 40 MCG, LEVOPHED AT 3 MCG/HR. SATS AT 99% ON VENT. BP NOW STABLE WITH MAP >65, SINUS RHYTHM ON MONITOR WITH RATES IN THE 80S-90S. TEMP MARTIN IN PLACE AND DRAINING TO GRAVITY, PT REMAINS FEBRILE WITH TEMP OF 101.6, MEDICATING PER EMAR AND PLACING COOLING PACKS AROUND AXILLAE. UPDATE PROVIDED TO SUSHMA OVER THE PHONE, CALL LIGHT WITHIN REACH.
[2025-10-23] MEDS ORDERED: Potassium Phosphate Dibasic 20 MM in Dextrose 5% 500 ML IV ONE (23:10)
[2025-10-23] MEDS ORDERED: Potassium Phosphate Dibasic 20 MM in NS 500 ML IV ONE (23:15)
[2025-10-24] VITALS (72 sets, daily range): BP systolic 73–137; BP diastolic 47–83
[2025-10-24] MEDS ORDERED: Insulin Human Lispro 100 Units/ML 3ML Syringe SC SCH
[2025-10-24] MEDS ORDERED: Hydrogen Peroxide 1.5 % Solution MT SCH
[2025-10-24] MEDS ORDERED: NS 500 ML IV ONE (01:05)
[2025-10-24] MEDS ORDERED: NS 500 ML IV SCH (01:10)
--- NOTE | 2025-10-24 01:12 | NUR ---
PATIENT UPDATE PT UO 15 ML/HR, CALL PLACED TO PROVIDER, ORDERS PLACED FOR FLUID BOLUS -SEE MAR.
[2025-10-24 03:26] LABS: pH Blood Venous 7.45 (7.34-7.37)
[2025-10-24 03:30] LABS: BASOPHILS ABSOLUTE AUTO 0.11 K/mm3 (0.00-0.23); BASOPHILS PERCENT AUTO 1 % (0-2); EOSINOPHILS ABSOLUTE AUTO 0.02 K/mm3 (0.00-0.68); EOSINOPHILS PERCENT AUTO 0 % (0-6); Hematocrit 36.7 % (37.0-53.0); Hemoglobin 12.5 g/dL (13.5-17.5); IMMATURE GRAN ABSOLUTE AUTO 0.07 K/mm3 (0.00-0.10); IMMATURE GRAN PERCENT AUTO 0 % (0-1); LYMPHOCYTES ABSOLUTE AUTO 2.81 K/mm3 (0.84-5.20); LYMPHOCYTES PERCENT AUTO 16 % (21-46); MONOCYTES ABSOLUTE AUTO 1.30 K/mm3 (0.16-1.47); MONOCYTES PERCENT AUTO 8 % (4-13); Mean Corpuscular HGB Conc 34.1 g/dL (31.5-36.5); Mean Corpuscular Volume 96 fL (80-100); NEUTROPHILS ABSOLUTE AUTO 13.10 K/mm3 (1.96-9.15); NEUTROPHILS PERCENT AUTO 75 % (41-73); NRBC ABSOLUTE 0.00 K/mm3 (0.00-0.02); NRBC Auto 0.0 /100 WBC (0.0-0.2); Platelet Count 189 K/mm3 (150-400); RDW Coefficient Variation 14.7 % (11.7-14.2); RDW Standard Deviation 51.4 fL (35.1-46.3)
[2025-10-24] MEDS ORDERED: CefTRIAXone Sodium 2,000 MG in NS 100 ML IV SCH ×2 (04:00→09:00)
[2025-10-24 04:31] LABS: Alanine Aminotransfer (ALT/SGP 17.0 U/L (12-78); Albumin, Blood 2.9 g/dL (3.4-5.0); Albumin/Globulin Ratio 1.0 (0.8-1.8); Anion Gap 13.0 mmol/L (3-11); Aspartate Aminotrans (AST/SGOT 58.0 U/L (12-37); Bilirubin, Total 0.4 mg/dL (0.1-1.0); Blood Urea Nitrogen 22.0 mg/dL (8-24); CO2, Blood 20.0 mmol/L (21-32); Calcium, Blood 7.8 mg/dL (8.5-10.1); Chloride, Blood 108.0 mmol/L (98-108); Creatinine, Blood 1.37 mg/dL (0.60-1.20); Globulin, Blood 2.9 g/dL (2.2-4.0); Glucose, Blood 233.0 mg/dL (70-99); Magnesium, Blood 2.0 mg/dL (1.6-2.4); Phosphorus, Blood 4.0 mg/dL (2.5-4.9); Potassium, Blood 3.7 mmol/L (3.5-5.5); Sodium, Blood 137.0 mmol/L (136-145); Total Protein, Blood 5.8 g/dL (6.4-8.2)
--- NOTE | 2025-10-24 06:01 | NUR ---
SHIFT SUMMARY PT REMAINS INTBUATED AND SEDATED. VENT SETTINGS A/C VC 16/450/5.0/30% FI02 WITH SATS AT 100%. BP IS STABLE WITH LEVO AT 5 MCG/HR AND MAP >65, SBP IN THE 110S. SINUS ON MONITOR WITH RATE IN THE 70S. PROPOFOL AT 40 MCG, NS AT 150 ML/HR. PT NOW AFEBRILE WITH TEMP OF 99.3, TMAX FOR SHIFT WAS 101.7, MEDICATED PER JAN. TEMP MARTIN IN PLACE AND DRAINING TO GRAVITY, UO LOW THIS SHIFT, SEE PREVIOUS NOTE. PT PROVIDED UPDATE OVER PHONE, CALL LIGHT WITHIN REACH.
[2025-10-24] MEDS ORDERED: Pantoprazole Sodium 40 MG Injection IV SCH (09:00)
[2025-10-24] MEDS ORDERED: Enoxaparin 40 MG/0.4 ML SYR SC SCH (09:00)
--- NOTE | 2025-10-24 09:05 | NUR ---
ASSUMPTION OF CARE PATIENT INTUBATED AND SEDATED. RASS -3. PROPOFOL AND LEVOPHED INFUSING IN PATENT RIGHT AC PIV PER EMAR. SEE FLOWSHEET FOR TITRATIONS. VENT SETTINGS AC/VC 16/450/5 30% FIO2 WITH SPO2 >96%. HR SINUS IN THE 60S. BP STABLE WITH MAPS >65 ON THE LEVOPHED. TEMP MARTIN PATENT AND DRAINING YELLOW URINE TO GRAVITY. OGT PATENT AND CLAMPED. LEFT AC PIV PATENT AND INFUSING NS @ 150ML/HR.
--- NOTE | 2025-10-24 10:56 | NUR ---
consult received and reviewed. no polst on file.
[2025-10-24] MEDS ORDERED: DEXTROSE 5% IV SCH (12:00)
[2025-10-24] MEDS ORDERED: ACYCLOVIR IV SCH (12:00)
[2025-10-24] MEDS ORDERED: Docusate Sodium Liquid 100 MG UDC PT PRN (14:00)
[2025-10-24] MEDS ORDERED: Magnesium Hydroxide Conc 10 ML UDC PT PRN (14:00)
[2025-10-24] MEDS ORDERED: FentaNYL Citrate 50 MCG/ML 2 ML Injection IV PRN (15:10)
[2025-10-24] MEDS ORDERED: LORazepam 2 MG/ML 1ML Injection IV PRN (15:15)
--- NOTE | 2025-10-24 17:28 | NUR ---
SHIFT SUMMARY PATIENT INTUBATED AND SEDATED. RASS -3. PROPOFOL INFUSING PER EMAR. SEE FLOWSHEET FOR TITRATIONS. PATIENT GIVEN PRN ATIVAN AND FENTANLY Q1 IN ADJUNCT TO SEDATION. VENT SETTINGS AC/VC 16/450/5 30% FIO2 WITH SPO2 >96%. HR SINUS/SINUS THEO IN THE 40S-60S. BP STABLE WITH MAPS >65. TEMP MARTIN PATENT AND DRAINING URINE TO GRAVITY. NO BM THIS SHIFT. OGT PATENT AND INFUSING VHP @ 25ML/HR WITH GOAL OF 50ML/HR. PG TO KAY PATENT AND INFUSING NS @ 150ML/HR. PIV TO RIGHT AC PATENT AND INFUSING PROPOFOL. BED IN LOWEST POSITION. AND DAUGHTER UPDATED ON PLAN OF CARE.
--- NOTE | 2025-10-24 20:24 | NUR ---
ASSUMPTION OF CARE ASSUMED CARE OF PT APPROX 1900. PT REMAINS INTUBATED AND SEDATED, RASS -1. PROPOFOL INFUSING AT 10 MCG, LEVO AT 2 MCG, NS AT 150 ML, TF AT 25 ML AT START OF SHIFT, WAS INCREASED TO 50 ML/HR AT 1930 PER ORDERS WHICH IS NOW AT GOAL RATE. PT WILL OPEN EYES AND BECOME AGITATED, PULLS AT RESTRAINTS TO NOISE IN ROOM, DOES NOT MAINTAIN EYE CONTACT. PT MOVES ALL EXTREMETIES WHEN AGITATED. VENT SETTINGS A/C VC 16/450/5/30% FIO2, SATS 98-100%. BP IS STABLE WITH LEVO GTT, MAP >65 AND SYSTOLIC IN THE HIGH 90S-LOW 100S. SINUS ON MONITOR WITH RATES IN THE 60S-70S, RISING TO THE 90S WHEN STIMULATED. TEMP MARTIN IN PLACE AND DRAINING TO GRAVITY, PT REMAINS AFEBRILE. CALL LIGHT WITHIN REACH.
[2025-10-25] VITALS (48 sets, daily range): BP systolic 90–152; BP diastolic 57–93
[2025-10-25 03:30] LABS: BASOPHILS ABSOLUTE AUTO 0.05 K/mm3 (0.00-0.23); BASOPHILS PERCENT AUTO 1 % (0-2); EOSINOPHILS ABSOLUTE AUTO 0.10 K/mm3 (0.00-0.68); EOSINOPHILS PERCENT AUTO 1 % (0-6); Hematocrit 31.3 % (37.0-53.0); Hemoglobin 10.9 g/dL (13.5-17.5); IMMATURE GRAN ABSOLUTE AUTO 0.05 K/mm3 (0.00-0.10); IMMATURE GRAN PERCENT AUTO 1 % (0-1); LYMPHOCYTES ABSOLUTE AUTO 1.90 K/mm3 (0.84-5.20); LYMPHOCYTES PERCENT AUTO 18 % (21-46); MONOCYTES ABSOLUTE AUTO 0.54 K/mm3 (0.16-1.47); MONOCYTES PERCENT AUTO 5 % (4-13); Mean Corpuscular HGB Conc 34.8 g/dL (31.5-36.5); Mean Corpuscular Volume 96 fL (80-100); NEUTROPHILS ABSOLUTE AUTO 8.24 K/mm3 (1.96-9.15); NEUTROPHILS PERCENT AUTO 76 % (41-73); NRBC ABSOLUTE 0.00 K/mm3 (0.00-0.02); NRBC Auto 0.0 /100 WBC (0.0-0.2); Platelet Count 142 K/mm3 (150-400); RDW Coefficient Variation 14.6 % (11.7-14.2); RDW Standard Deviation 51.5 fL (35.1-46.3)
[2025-10-25 04:23] LABS: Anion Gap 8.0 mmol/L (3-11); Blood Urea Nitrogen 17.0 mg/dL (8-24); CO2, Blood 20.0 mmol/L (21-32); Calcium, Blood 6.8 mg/dL (8.5-10.1); Chloride, Blood 114.0 mmol/L (98-108); Creatinine, Blood 1.12 mg/dL (0.60-1.20); Glucose, Blood 131.0 mg/dL (70-99); Magnesium, Blood 1.8 mg/dL (1.6-2.4); Phosphorus, Blood 1.7 mg/dL (2.5-4.9); Potassium, Blood 3.1 mmol/L (3.5-5.5); Sodium, Blood 139.0 mmol/L (136-145)
[2025-10-25 05:37] LABS: Vancomycin, Trough 17.1 ug/mL (5.0-10.0)
[2025-10-25] MEDS ORDERED: CALCIUM GLUC IN NACL, ISO-OSM 50 ML IV ONE (06:15)
--- NOTE | 2025-10-25 06:20 | NUR ---
SHIFT SUMMARY PT REMAINS INTUBATED AND SEDATED, RASS -2, VERY LABILE AND QUICKLY BECOMES RASS +2 WITH STIMULATION, PT WILL TRY TO SITUP IN BED, PULL AT RESTRAINTS, KICK LEGS, PULL ON TUBES AND BECOME VERY AGITATED REQUIRING ADDITION OF LOWER EXTREMITY RESTRAINTS AT APPROX 0300 AND FREQUENT TIME AT BEDSIDE REORIENTING AND REDIRECTING PT. BP REMAINS STABLE ON LEVO GTT WITH MAP >65, SINUS RHYTHM ON MONITOR WITH RATES IN THE HIGH 50S - MID 60S WHEN NOT AGITATED. SATS REMAIN 98-100% ON VENT. CURRENT SETTINGS A/C VC 16/450/5/30% FI02. PROPOFOL AT 20 MCG, LEVO AT 2 MCG, TF AT 50 ML/HR WHICH IS ALSO GOAL RATE. TEMP MARTIN IN PLACE AND DRAINING TO GRAVITY. CALL LIGHT WITHIN REACH.
[2025-10-25] MEDS ORDERED: Potassium Phosphate Dibasic 30 MM in Dextrose 5% 500 ML IV ONE (06:45)
--- NOTE | 2025-10-25 08:00 | NUR ---
ASSUMPTION OF CARE ASSUMED CARE OF PATIENT AT APPROX 0700. PATIENT INTUBATED AND SEDATED. RASS +2. PATIENT PULLING AGAINST RESTRAINTS, FIGHTING THE VENT, AND MOUTHING CURSE WORDS AT STAFF. PATIENT MEDICATED WITH ATIVAN AND FENTANYL PER EMAR. PROPOFOL AND LEVOPHED INFUSING PER EMAR. SEE FLOWSHEET FOR TITRATIONS. HR SINUS IN THE 50S-60S. BP STABLE WITH MAPS >65 ON THE LEVOPHED. VENT SETTINGS AC/VC 16/450/5 30% FIO2 WITH SPO2 >96%. TEMP MARTIN PATENT AND DRAINING YELLOW URINE TO GRAVITY. OGT PATENT AND INFUSING VHP @ GOAL OF 50MLS/HR. BED IN LOWEST POSITION. CALL LIGHT IN REACH.
[2025-10-25] MEDS ORDERED: Potassium Phos/Sodium Phos 250 MG PACK PO ONE (08:05)
[2025-10-25] MEDS ORDERED: Mag Sulfate 1 GM/D5% 100ML 100 ML IV STA (08:09)
--- NOTE | 2025-10-25 10:41 | NUR ---
LIBERATION PATIENT LIBERATED @1037 TO 2LO2 VIA NC WITH SPO2 >96%. DR LOVE AT BEDSIDE. DTR AT BEDSIDE.
--- NOTE | 2025-10-25 17:06 | NUR ---
SHIFT SUMMARY PATIENT ALERT AND ORIENTED TO SELF, FAMILY, AND THIS RN. PATIENT NEEDED REORIENTED ABOUT WHERE HE IS AND WHAT HAPPENED. PATIENT CAN MOVE ALL FOUR LIMBS EQUALLY. HR SINUS IN THE 80S SINCE LIBERATION. BP STABLE WITH MAPS >65. PATIENT ON RA WITH SPO2 >96%. BREATHING EVEN AND UNLABORED. TEMP MARTIN PATENT AND DRAINING URINE TO GRAVITY. NO BM THIS SHIFT. CALL LIGHT IN REACH. BED IN LOWEST POSITION. BED ALARM ON. DAUGHTER AND UPDATED ON PLAN OF CARE THROUGHOUT THE SHIFT.
--- NOTE | 2025-10-25 19:16 | NUR ---
ASSUMPTION OF CARE: REPORT FROM ANTHONY BAILEY RN TO ASSUME CARE OF PT. PT SITTING UP IN BED TALKING TO DAUGHTER AT BEDSIDE. DENIES ANY NEEDS AT THIS TIME. CALL LIGHT IN REACH. BED ALARM ON AND BED IN LOW POSITION.
[2025-10-26] VITALS (18 sets, daily range): BP systolic 117–165; BP diastolic 63–115
[2025-10-26 04:41] LABS: BASOPHILS ABSOLUTE AUTO 0.06 K/mm3 (0.00-0.23); BASOPHILS PERCENT AUTO 1 % (0-2); EOSINOPHILS ABSOLUTE AUTO 0.10 K/mm3 (0.00-0.68); EOSINOPHILS PERCENT AUTO 1 % (0-6); Hematocrit 31.6 % (37.0-53.0); Hemoglobin 11.3 g/dL (13.5-17.5); IMMATURE GRAN ABSOLUTE AUTO 0.03 K/mm3 (0.00-0.10); IMMATURE GRAN PERCENT AUTO 0 % (0-1); LYMPHOCYTES ABSOLUTE AUTO 1.54 K/mm3 (0.84-5.20); LYMPHOCYTES PERCENT AUTO 22 % (21-46); MONOCYTES ABSOLUTE AUTO 0.36 K/mm3 (0.16-1.47); MONOCYTES PERCENT AUTO 5 % (4-13); Mean Corpuscular HGB Conc 35.8 g/dL (31.5-36.5); Mean Corpuscular Volume 92 fL (80-100); NEUTROPHILS ABSOLUTE AUTO 5.04 K/mm3 (1.96-9.15); NEUTROPHILS PERCENT AUTO 71 % (41-73); NRBC ABSOLUTE 0.00 K/mm3 (0.00-0.02); NRBC Auto 0.0 /100 WBC (0.0-0.2); Platelet Count 140 K/mm3 (150-400); RDW Coefficient Variation 14.3 % (11.7-14.2); RDW Standard Deviation 48.8 fL (35.1-46.3)
[2025-10-26 04:52] LABS: Alanine Aminotransfer (ALT/SGP 31.0 U/L (12-78); Albumin, Blood 2.4 g/dL (3.4-5.0); Albumin/Globulin Ratio 0.8 (0.8-1.8); Anion Gap 8.0 mmol/L (3-11); Aspartate Aminotrans (AST/SGOT 135.0 U/L (12-37); Bilirubin, Total 0.6 mg/dL (0.1-1.0); Blood Urea Nitrogen 9.0 mg/dL (8-24); CO2, Blood 26.0 mmol/L (21-32); Calcium, Blood 7.4 mg/dL (8.5-10.1); Chloride, Blood 109.0 mmol/L (98-108); Creatinine, Blood 0.94 mg/dL (0.60-1.20); Globulin, Blood 3.2 g/dL (2.2-4.0); Glucose, Blood 150.0 mg/dL (70-99); Magnesium, Blood 1.8 mg/dL (1.6-2.4); Phosphorus, Blood 2.5 mg/dL (2.5-4.9); Potassium, Blood 3.0 mmol/L (3.5-5.5); Sodium, Blood 140.0 mmol/L (136-145); Total Protein, Blood 5.6 g/dL (6.4-8.2)
[2025-10-26] MEDS ORDERED: Mag Sulfate 1 GM/D5% 100ML 100 ML IV ONE (05:55)
--- NOTE | 2025-10-26 07:02 | NUR ---
ELMA SUMMARY: REPORT TO WOODY TO ASSUME CARE OF PT. PT RESTED WELL THROUGHOUT THE NIGHT. WOKE UP TO HELP THIS RN REPOSITION. ALERT AND ORIENTED FOLLOWS COMMANDS. DENIES ANY CP, PRESSURE, TIGHTNESS OR SOB. VSS. AFEBRILE. MARTIN REMAINS IN PLACE WITH GOOD OUTPUT OVERNIGHT. RECTAL TUBE REMAINS IN PLACE WITH A SMALL AMOUNT OF DARK LIQUID STOOL. PROTONIX GTT INFUSING. POTASSIUM IS BEING REPLACED AT THIS TIME. VSS. NO SIGNIFICANT EVENTS HAPPENED DURING THIS SHIFT. WILL CONTINUE TO CARE FOR PT TILL END OF SHIFT.
--- NOTE | 2025-10-26 07:22 | NUR ---
SHIFT SUMMARY: REPORT TO WOODY TO ASSUME CARE OF PT. PT RESTED WELL THROUGHOUT THE NIGHT. WOKE UP TO HELP THIS RN REPOSITION. ALERT AND ORIENTED FOLLOWS COMMANDS. DENIES ANY CP, PRESSURE, TIGHTNESS OR SOB. VSS. AFEBRILE. MARTIN REMAINS IN PLACE WITH GOOD OUTPUT OVERNIGHT. POTASSIUM IS BEING REPLACED AT THIS TIME. VSS. NO SIGNIFICANT EVENTS HAPPENED DURING THIS SHIFT.
[2025-10-26] MEDS ORDERED: Folic Acid 1 MG TAB PO SCH (08:00)
[2025-10-26] MEDS ORDERED: NS 250 ML IV PRN (08:05)
--- NOTE | 2025-10-26 10:25 | NUR ---
ASSUMPTION OF CARE ASSUMED CARE OF PATIENT AT APPROXIMATELY 0700. PT RESTING IN BED, ALERT ORIENTED TO SELF. PT CONFUSED UPON WAKING UP, AFTER REORIENTED, PT A&O X4. PT MOVES EXTREMITIES EQUALLY BILATERALLY, AMBULATES IN THE ROOM WITH ASSISTANCE. PT ABLE TO MAKE HIS NEEDS KNOWN, DENIES PAIN AT TIME OF ASSESSMENT. PT UP TO BEDSIDE RECLINER WITH CHAIR ALARM IN PLACE. HR 60-100'S SINUS, MAP >65. PT ON RA, OXYGEN SATURATION >95%. ABDOMEN SOFT, BOWEL TONES HYPERACTIVE. BEDSIDE SWALLOW EVLUATION PERFORMED, PT PASSED, HOWEVER PT VOMITED SHORTLY AFTER DRINKING WATER, MEDICATED PER EMAR WITH GOOD EFFECT. TEMP MARTIN IN PLACE PATENT DRAINING YELLOW URINE TO GRAVITY. POWERGLIDE IN PLACE TO KAY. CALL LIGHT WIHTIN REACH, CARE CONTINUES.
[2025-10-26] MEDS ORDERED: Potassium Chl 20MEQ/Water100ML 100 ML IV ONE (11:00)
[2025-10-26] MEDS ORDERED: Insulin Human Lispro 100 Units/ML 3ML Syringe SC SCH ×2 (16:30→16:40)
--- NOTE | 2025-10-26 16:51 | NUR ---
PT UPDATE CALL PLACED TO DR. LEAVITT REGARDING PT BLOOD SUGAR. ORDERS RECEIVED, SEE EMAR. BED IN LOWEST POSITION, CALL LIGHT WITHIN REACH, CARE CONTINUES.
--- NOTE | 2025-10-26 17:11 | NUR ---
SHIFT SUMMARY PT CONTINUES TO REST IN BED, ALERT, CONFUSED AT TIMES. PT MOVES EXTREMITIES EQUALLY BILATERALLY, ASSISTS WITH TURNS. PT AMBULATES IN THE ROOM WITH ASSISTANCE, WORKED WITH PT/OT THIS SHIFT. PT DENIES PAIN THIS SHIFT. HR 80-110'S SINUS, MAP >65. PT ON RA, OXYGEN SATURATION >95%. ABDOMEN SOFT, BOWEL TONES ACTIVE THROUGHOUT. MALE PUREWICK PLACED FOR FREQUENCY AND URGENCY. POWERGLIDE IN PLACE TO KAY SL. BED IN LOWEST POSITION, CALL LIGHT WITHIN REACH, CARE CONTINUES.
[2025-10-27] VITALS: BP 121/62
[2025-10-27 03:16] LABS: BASOPHILS ABSOLUTE AUTO 0.08 K/mm3 (0.00-0.23); BASOPHILS PERCENT AUTO 1 % (0-2); EOSINOPHILS ABSOLUTE AUTO 0.16 K/mm3 (0.00-0.68); EOSINOPHILS PERCENT AUTO 2 % (0-6); Hematocrit 35.4 % (37.0-53.0); Hemoglobin 12.6 g/dL (13.5-17.5); IMMATURE GRAN ABSOLUTE AUTO 0.02 K/mm3 (0.00-0.10); IMMATURE GRAN PERCENT AUTO 0 % (0-1); LYMPHOCYTES ABSOLUTE AUTO 1.61 K/mm3 (0.84-5.20); LYMPHOCYTES PERCENT AUTO 22 % (21-46); MONOCYTES ABSOLUTE AUTO 0.43 K/mm3 (0.16-1.47); MONOCYTES PERCENT AUTO 6 % (4-13); Mean Corpuscular HGB Conc 35.6 g/dL (31.5-36.5); Mean Corpuscular Volume 93 fL (80-100); NEUTROPHILS ABSOLUTE AUTO 5.03 K/mm3 (1.96-9.15); NEUTROPHILS PERCENT AUTO 69 % (41-73); NRBC ABSOLUTE 0.00 K/mm3 (0.00-0.02); NRBC Auto 0.0 /100 WBC (0.0-0.2); Platelet Count 152 K/mm3 (150-400); RDW Coefficient Variation 13.9 % (11.7-14.2); RDW Standard Deviation 47.8 fL (35.1-46.3)
--- NOTE | 2025-10-27 03:19 | NUR ---
TRANSFER REPORT GIVEN TO VALENTIN RODRÍGUEZ ON MEDICAL FLOOR AT APPROX 0300. PT TRANSPORTED VIA WHEELCHAIR WITH ALL BELONGINGS TO MEDICAL FLOOR, ROOM 347 AT APPROX 0318. HE IS ALERT AND ORIENTED TO SELF, PLACE, AND DATE, BUT NEEDS REMINDING OF SITUATION. HE DENIES PAIN. IS COOPERATIVE WITH CARE. ON CONTINUOUS CARDIAC TELEMETRY, SINUS RHYTHM, HR 70'S, HE DENIES CHEST PAIN/PRESSURE. ON RA, O2 SATS ABOVE 94%, BREATHING IS SHALLOW AND UNLABORED. PUREWICK IN PLACE DUE TO URGENCY AND FREQUENCY, DRAINING TO SUCTION. PT SLEPT T/O MOST OF SHIFT, NO ACUTE CHANGES OVERNIGHT.
[2025-10-27 03:30] VITALS: BP 160/97
[2025-10-27 03:36] LABS: Alanine Aminotransfer (ALT/SGP 43.0 U/L (12-78); Albumin, Blood 2.6 g/dL (3.4-5.0); Albumin/Globulin Ratio 0.7 (0.8-1.8); Anion Gap 7.0 mmol/L (3-11); Aspartate Aminotrans (AST/SGOT 144.0 U/L (12-37); Bilirubin, Total 0.7 mg/dL (0.1-1.0); Blood Urea Nitrogen 11.0 mg/dL (8-24); CO2, Blood 29.0 mmol/L (21-32); Calcium, Blood 8.2 mg/dL (8.5-10.1); Chloride, Blood 106.0 mmol/L (98-108); Creatinine, Blood 0.94 mg/dL (0.60-1.20); Globulin, Blood 3.5 g/dL (2.2-4.0); Glucose, Blood 191.0 mg/dL (70-99); Potassium, Blood 3.4 mmol/L (3.5-5.5); Sodium, Blood 139.0 mmol/L (136-145); Total Protein, Blood 6.1 g/dL (6.4-8.2)
--- NOTE | 2025-10-27 04:24 | NUR ---
SHIFT SUMMARY TRANSFERED FROM ICU THIS SHIFT. ADMITTED FOR SEPSIS. FULL CODE. IV ANTIB RX ARE SCHEDULED. [facility] CBG'S, MEDIUM SS. PUREWICK IN PLACE. TELEMETRY: NSR @ 90 BPM. POWERGLIDE IN E. PULMONOLOGY CONSULT IS DR. ACUNA. ON . ADA DIET.
[2025-10-27 07:41] VITALS: BP 167/97
[2025-10-27 11:44] VITALS: BP 177/97
[2025-10-27] MEDS ORDERED: ACET500 PO (13:02)
[2025-10-27] MEDS ORDERED: Hair, Skin & N1 EACH PO (13:02)
[2025-10-27] MEDS ORDERED: [UNRECOGNIZED DRUG - OTHER] (13:03)
--- NOTE | 2025-10-27 13:13 | NUR ---
REVIEWED DISCHARGE PAPERWORK WITH PATIENT AND SPOUSE. ANSWERED ALL QUESTION.NO CONCERNS
== END 2025-10-27 13:23 | disposition home or self-care (01) | DRG 871 ==
LOC: ER 15:18 → ICUE 18:02 → MEDS 10-27 03:21
PROVIDERS: Emergency Medicine; Internal Medicine; Nurse Practitioner Acute Care; ADMIT Internal Medicine
PROC: 0BH17EZ Insertion of Endotracheal Airway into Trachea, Via Natural or Artificial Opening (ICD-10-PCS; principal; 2025-10-23)
PROC: 5A1945Z Respiratory Ventilation, 24-96 Consecutive Hours (ICD-10-PCS; 2025-10-23)
PROC: 0T9B70Z Drainage of Bladder with Drainage Device, Via Natural or Artificial Opening (ICD-10-PCS; 2025-10-23)
PROC: 0DH67UZ Insertion of Feeding Device into Stomach, Via Natural or Artificial Opening (ICD-10-PCS; 2025-10-23)
PROC: 3E0G76Z Introduction of Nutritional Substance into Upper GI, Via Natural or Artificial Opening (ICD-10-PCS; 2025-10-23)
PROC: 009U3ZX Drainage of Spinal Canal, Percutaneous Approach, Diagnostic (ICD-10-PCS; 2025-10-23)
PROC: 3E033XZ Introduction of Vasopressor into Peripheral Vein, Percutaneous Approach (ICD-10-PCS; 2025-10-23)
PROC: 3E03329 Introduction of Other Anti-infective into Peripheral Vein, Percutaneous Approach (ICD-10-PCS; 2025-10-23)
PROC: 3E02340 Introduction of Influenza Vaccine into Muscle, Percutaneous Approach (ICD-10-PCS; 2025-10-23)
DX: A41.9 Sepsis, unspecified organism (principal); E43 Unspecified severe protein-calorie malnutrition; G92.8 Other toxic encephalopathy; J96.01 Acute respiratory failure with hypoxia; R65.21 Severe sepsis with septic shock; E87.20 Acidosis, unspecified; N17.9 Acute kidney failure, unspecified; M62.82 Rhabdomyolysis; Z68.1 Body mass index [BMI] 19.9 or less, adult; E83.39 Other disorders of phosphorus metabolism; R45.1 Restlessness and agitation; Z78.1 Physical restraint status; E11.65 Type 2 diabetes mellitus with hyperglycemia; E78.00 Pure hypercholesterolemia, unspecified; R11.0 Nausea; R53.81 Other malaise; I10 Essential (primary) hypertension; F12.90 Cannabis use, unspecified, uncomplicated; I48.91 Unspecified atrial fibrillation; Z23 Encounter for immunization; Z79.899 Other long term (current) drug therapy; Z79.2 Long term (current) use of antibiotics; Z91.148 Patient's other noncompliance with medication regimen for other reason
CPT/HCPCS: 31500; 36415; 51702; 70450; 71045; 80048; 80053; 80202; 81001; 82248; 82330; 82550; 82607; 82746; 82803; 82945; 82947; 83036; 83605; 83735; 83880; 84100; 84157; 84443; 85025; 85610; 85730; 87040; 87070; 87086; 87428-QW; 87483; 89051; 92610; 93005; 93010; 94002; 94003; 94762; 96365-59; 96367-59; 96375-59; 97116; 97162; 97166; 97530; 99285-25; A9270; C1751; J0133; J0290; J0612; J0696; J1650; J1885; J2060; J2250; J2405; J2470; J2704; J3010; J3373; J3475; J3480; J7030; J7040; J7050; J7060; J7120; J8499